=== PATIENT | female | born 1955 | race Caucasian/White ===

== ENCOUNTER 2023-01-19 05:43 | Day surgery (SDC) | payer MEDICARE, OTHER ==
[2023-01-17 14:50] VITALS: BP 129/58
[~2023-01-19] VITALS: Ht 180.3 cm; Wt 90.9 kg
[~2023-01-19 05:43] MED LIST: ASPIRIN EC325 MG PO; CALCIUM500 M1 PO; DICLOFENAC SODI75 MG PO; ESTROVEN MENOP1 EACH PO; FENOGLIDE40 MG PO; HAIR SKIN NAIL1 EACH PO; LIPITOR10 MG; LISINOPRIL-HCT1 EACH PO; LISINOPRIL20 MG PO; METOPROLOL SUCC25 MG PO; OSTERA TABLET1 EACH PO; PRESERVISION A1 EAC5 PO; PRESERVISION A1 EACH PO
[2023-01-19 05:59] VITALS: BP 148/86
[2023-01-19] MEDS ORDERED: HYDROCODON-ACE1 EA10 PO (07:36)
--- NOTE | 2023-01-19 07:39 | NUR ---
01/19/23 0739 Ekaterina Yarbrough 0730- PT ARRIVES TO PACU ASLEEP. RESP EVEN AND UNLABORED. OXYGEN SAT LOW 90'S ON RA. CHIN LIFT DONE TO ASSIST IN MAINTAIN PATENT AIRWAY. PT RESPONDS WITH VERBAL AND TACTILE STIMULI. CHIN LIFT STOPPED. ENCOURAGED PT TO TAKE DEEP BREATHS. PT IS ABLE TO TAKE SLIGHTLY INCREASED BREATHS. PT COUGHS SLIGHTLY. OXYGEN SAT INCREASES TO ABOVE 90% WITH THESE INTERVENTIONS.
[2023-01-19 08:06] VITALS: BP 145/74
[2023-01-19 08:53] VITALS: BP 134/67
--- NOTE | 2023-01-19 09:13 | NUR ---
LE 08 PATIENT BACK TO DAY SURGERY IN ROOM 5. VITAL SIGNS COMPELTE. PATIENT BREATHING EQUAL AND UNLABORED. OXYGEN SATURATIONS ABOVE 90% ON ROOM AIR. PATIENT DENIES PAIN OR BEING NAUSEATED. SURGICAL SITE CLEAN, DRY AND INTACT. IVF INFUSING. SCD'S ON. LE 08 PATIENT DENIES PAIN. PATIENT DRINKING WATER AND EATING PUDDING. LE 904 PATIENT ALERT AND ORIENTED. PATIENT DENIES ANY PAIN OR BEING NAUSEATED. BREATHING EQUAL AND UNLABORED. OXYGEN SATURATIONS ABOVE 90% ON ROOM AIR. SURGICAL SITE CLEAN, DRY AND INTACT. IVF INFUSING. SCD'S ON. PATIENT HAS MET DISCHARGE CRITERIA. PATIENT DRESSED SELF WELL. IV D/C'D WNL. PATIENT WHEELED OUT OF FACILITY NO FUTHER NEEDS. NO QUESTIONS AT THIS TIME.
--- NOTE | 2023-01-22 08:51 | OR ---
[facility] [address], [place] [address] Signed DATE OF OPERATION: 01/18/2023 SURGEON: Sherri Calabrese MD PREOPERATIVE DIAGNOSES: 1. Carpal tunnel syndrome, right. 2. Trigger finger, left middle. POSTOPERATIVE DIAGNOSES: 1. Carpal tunnel syndrome, right. 2. Trigger finger, left middle. PROCEDURES PERFORMED: 1. Right carpal tunnel release. 2. Left trigger finger injection, middle. CLEANING TEAM MEMBER: None. ANESTHESIA: General. TOURNIQUET TIME: 6 minutes. BRIEF HISTORY: Alena is a 67-year-old female with pain and numbness in the right hand and locking in her left middle finger. Risks and benefits of operative treatment were discussed with her and she elected to proceed. DESCRIPTION OF PROCEDURE: Once consent was obtained, she was taken to the operating room. After adequate anesthesia, she was left on the day surgery bed. The left hand was prepped with alcohol and the middle flexor tendon sheath was injected with 1 mL of 0.25% Ropivacaine and Kenalog 40 mixture. Attention was then turned to the right arm which was placed in a well-padded proximal arm tourniquet. The arm was then prepped and draped in a standard sterile fashion and exsanguinated using Esmarch bandage. Tourniquet was inflated to 200 mmHg. The carpal tunnel was approached through a 1.5 cm incision in the distal wrist crease, carried through the skin and subcutaneous tissue. Palmaris longus was identified, retracted and protected. Under loupe magnification, the transverse carpal Electronically Signed By: SHERRI CALABRESE MD 01/22/23 0851 PATIENT NAME: ALENA LARSEN OPERATIVE REPORT DATE OF : 57 REPORT #: [id number] PHYSICIAN: SHERRI CALABRESE MD PCP: ROBERT JONES MD REPORT IS CONFIDENTIAL AND NOT TO BE RELEASED WITHOUT AUTHORIZATION [facility] [address], [place] [address] Signed ligament was identified and dissected free of overlying soft tissue. It was then released a cm and a half proximally and distally to the distal extent again under direct loupe magnification. This was palpated using a [place] and found to be completely released. The wound was copiously irrigated with normal saline, closed with 3-0 nylon and injected with 5 mL of 0.25% Marcaine plain. The wound was dressed with bacitracin, Adaptic, 4 x 8s, and gauze. She tolerated the procedure well. All sponge, needle, and instrument counts were correct. Sherri Calabrese MD BA/YADIRAL /[id number] Copies: ~ Electronically Signed By: SHERRI CALABRESE MD 01/22/23 0851 PATIENT NAME: ALENA LARSEN OPERATIVE REPORT DATE OF : 57 REPORT #: [id number] PHYSICIAN: SHERRI CALABRESE MD PCP: ROBERT JONES MD REPORT IS CONFIDENTIAL AND NOT TO BE RELEASED WITHOUT AUTHORIZATION
== END 2023-01-19 09:05 | disposition home or self-care (01) ==
LOC: DS 05:43
PROVIDERS: ATTEND Specialist
PROC: 3E0233Z Introduction of Anti-inflammatory into Muscle, Percutaneous Approach (ICD-10-PCS; 2023-01-19)
PROC: 01N50ZZ Release Median Nerve, Open Approach (ICD-10-PCS; principal; 2023-01-19 07:00)
DX: G56.01 Carpal tunnel syndrome, right upper limb (principal); M65.332 Trigger finger, left middle finger
CPT/HCPCS: 01810; J0131; J1100; J1885; J2001; J2405; J2704; J2795; J3010; J3301; J3490; J7121

== ENCOUNTER 2023-10-13 09:44 | Emergency (ER) | payer MEDICARE, OTHER ==
[~2023-10-13] VITALS: Ht 180.3 cm; Wt 88.3 kg
[~2023-10-13 09:44] MED LIST changes: +GABAPENTIN300 MG PO; +HYDROCODON-ACE1 EA10 PO
--- OUTSIDE RECORDS SUMMARY | 2023-10-13 09:45 | XMS ---
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 Tess has no Care Guidelines for this patient. Manas VISIT COUNT (12 MO.) 1 EDWIN Quan TOTAL 1 NOTE: Visits indicate total known visits. ED/C VISIT TRACKING (12 MO.) 10/13/2023 09:44 EDWIN Sandoval OR TYPE: Emergency COMPLAINT: - COLD SYMPTOMS INPATIENT VISIT TRACKING (12 MO.) No inpatient visits to display in this time frame [email or web address]
[2023-10-13] MEDS ORDERED: ATORVASTATIN CA40 MG PO (09:59)
[2023-10-13] MEDS ORDERED: VITAMIN D350 MCG PO (10:01)
[2023-10-13] MEDS ORDERED: VENTOLIN HFA18 GM INH (10:28)
[2023-10-13 11:03] VITALS: BP 127/58
== END 2023-10-13 11:03 | disposition home or self-care (01) ==
LOC: ED 09:44
DX: U07.1 COVID-19 (principal); I10 Essential (primary) hypertension; Z88.1 Allergy status to other antibiotic agents; Z88.8 Allergy status to other drugs, medicaments and biological substances; Z91.048 Other nonmedicinal substance allergy status; Z79.899 Other long term (current) drug therapy
CPT/HCPCS: 99283